=== PATIENT | female | born 1995 | race Two or more races ===

== ENCOUNTER 2021-08-16 14:48 | Emergency (ER) | payer OTHER ==
[~2021-08-16] VITALS: Ht 149.9 cm; Wt 100.0 kg
[2021-08-16 14:56] VITALS: BP 138/92
[2021-08-16] MEDS ORDERED: IBUPROFEN 600 MG TABLET PO ONE (15:00)
== END 2021-08-16 15:50 | disposition home or self-care (01) ==
LOC: EMS 14:52
DX: S00.33XA Contusion of nose, initial encounter (principal); Y04.0XXA Assault by unarmed brawl or fight, initial encounter; Y93.89 Activity, other specified; Y92.89 Other specified places as the place of occurrence of the external cause; Y99.8 Other external cause status
CPT/HCPCS: 99283

== ENCOUNTER 2021-08-26 02:55 | Emergency (ER) | payer OTHER ==
[~2021-08-26] VITALS: Ht 149.9 cm; Wt 99.0 kg
[2021-08-26] MEDS ORDERED: SODIUM CHLORIDE 0.9% 1,000 ML IV ONE (03:15)
[2021-08-26] MEDS ORDERED: ONDANSETRON HCL 4 MG/2 ML VIAL IVP ONE (03:15)
[2021-08-26] MEDS ORDERED: PB/HYOSCY/ATR/SCOP/LIDO/MAALOX 55 ML BOTTLE PO ONE (03:15)
[2021-08-26 04:11] LABS: BASOPHILS % (AUTO) 0.4 % (0.0-2.0); HEMATOCRIT 36.5 % (36-46); HEMOGLOBIN 12.4 g/dL (12.0-16.0); LYMPHOCYTES # (AUTO) 2.7 K/uL (1.0-4.8); LYMPHOCYTES % (AUTO) 26.5 % (22.0-44.0); MEAN CORPUSCULAR HEMOGLOBIN 29.2 pg (26.0-34.0); MEAN CORPUSCULAR HGB CONC 33.8 G/dL (31.0-37.0); MEAN CORPUSCULAR VOLUME 86 fL (80-100); MONOCYTES # (AUTO) 0.7 K/uL (0.1-1.0); MONOCYTES % (AUTO) 7.3 % (2.0-9.0); NEUTROPHILS # (AUTO) 6.4 K/uL (1.8-7.7); NEUTROPHILS % (AUTO) 63.8 % (40.0-70.0); PLATELET COUNT (AUTO) 304 K/uL (150-450); RED BLOOD CELL COUNT(AUTO) 4.23 MIL/uL (4.00-5.20); RED CELL DISTRIBUTION WIDTH 13.6 % (11.5-14.5)
[2021-08-26 04:21] LABS: ANION GAP 6 mmol/L (8-16); CALCIUM, TOTAL 8.7 mg/dL (8.8-10.5); CARBON DIOXIDE 30 mmol/L (22-29); CHLORIDE 101 mmol/L (98-107); CREATININE 0.65 mg/dL (0.60-1.30); GLOMERULAR FILTR. RATE CALC > 60 mL/min (>60); GLUCOSE,RANDOM 94 mg/dL (70-110); POTASSIUM 3.7 mmol/L (3.5-5.1); SODIUM SERUM 137 mmol/L (136-145); UREA NITROGEN, BLOOD 17 mg/dL (7-18)
[2021-08-26 04:38] LABS: ALANINE AMINOTRANSFERASE 28 U/L (12-78); ALBUMIN 3.3 g/dL (3.4-5.0); ALKALINE PHOSPHATASE 79 U/L (46-116); ASPARTATE AMINOTRANSFERASE 15 U/L (15-37); BILIRUBIN,TOTAL 0.2 mg/dL (0.1-1.0); HCG,QUANTITATIVE < 1 mIU/mL (0-6); LIPASE 108 U/L (73-393); TOTAL PROTEIN, SERUM 7.2 g/dL (6.4-8.2)
[2021-08-26 05:13] LABS: APPEARANCE,URINE CLEAR (CLEAR); BILIRUBIN,URINE NEGATIVE (NEGATIVE); GLUCOSE, URINE (UA) NEGATIVE (NEGATIVE); KETONES,URINE NEGATIVE (NEGATIVE); LEUKOCYTE ESTERASE ,URINE NEGATIVE (NEGATIVE); NITRATE,URINE NEGATIVE (NEGATIVE); OCCULT BLOOD,URINE NEGATIVE (NEGATIVE); PROTEIN,URINE NEGATIVE (NEGATIVE); UROBILINOGEN,URINE <=1.0 mg/dL (<=1.0)
[2021-08-26 15:23] VITALS: BP 164/84
== END 2021-08-26 16:41 | disposition left against medical advice (07) ==
LOC: EMS 02:57
DX: K80.20 Calculus of gallbladder without cholecystitis without obstruction (principal)
CPT/HCPCS: 36415; 76705; 80053; 81003; 83690; 84702; 85025; 96361; 96374; 99285; J2405; J7030

== ENCOUNTER 2021-12-17 09:20 | Emergency (ER) | payer OTHER ==
[~2021-12-17] VITALS: Ht 149.9 cm; Wt 104.5 kg
[2021-12-17 10:02] LABS: BASOPHILS % (AUTO) 0.7 % (0.0-2.0); EOSINOPHILS % (AUTO) 1.6 % (1.0-6.0); HEMATOCRIT 33.3 % (36-46); HEMOGLOBIN 11.4 g/dL (12.0-16.0); LYMPHOCYTES # (AUTO) 1.3 K/uL (1.0-4.8); LYMPHOCYTES % (AUTO) 21.7 % (22.0-44.0); MEAN CORPUSCULAR HEMOGLOBIN 29.3 pg (26.0-34.0); MEAN CORPUSCULAR HGB CONC 34.3 G/dL (31.0-37.0); MEAN CORPUSCULAR VOLUME 86 fL (80-100); MONOCYTES # (AUTO) 0.5 K/uL (0.1-1.0); MONOCYTES % (AUTO) 8.1 % (2.0-9.0); NEUTROPHILS % (AUTO) 67.9 % (40.0-70.0); PLATELET COUNT (AUTO) 209 K/uL (150-450); RED BLOOD CELL COUNT(AUTO) 3.89 MIL/uL (4.00-5.20); RED CELL DISTRIBUTION WIDTH 13.4 % (11.5-14.5)
[2021-12-17 10:10] LABS: ANION GAP 2 mmol/L (8-16); CALCIUM, TOTAL 8.7 mg/dL (8.8-10.5); CARBON DIOXIDE 27 mmol/L (22-29); CHLORIDE 103 mmol/L (98-107); CREATININE 0.58 mg/dL (0.60-1.30); GLOMERULAR FILTR. RATE CALC > 60 mL/min (>60); GLUCOSE,RANDOM 96 mg/dL (70-110); POTASSIUM 4.2 mmol/L (3.5-5.1); SODIUM SERUM 132 mmol/L (136-145); UREA NITROGEN, BLOOD 11 mg/dL (7-18)
[2021-12-17 10:15] LABS: ALANINE AMINOTRANSFERASE 18 U/L (12-78); ALKALINE PHOSPHATASE 56 U/L (46-116); ASPARTATE AMINOTRANSFERASE 12 U/L (15-37); BILIRUBIN,TOTAL 0.3 mg/dL (0.1-1.0); LIPASE 47 U/L (73-393); TOTAL PROTEIN, SERUM 6.7 g/dL (6.4-8.2)
[2021-12-17 10:21] LABS: INR 0.9 (0.9-1.1); PROTHROMBIN TIME 9.4 SEC (9.4-11.6)
[2021-12-17 13:22] VITALS: BP 110/75
== END 2021-12-17 14:55 | disposition left against medical advice (07) ==
LOC: EMS 09:20
DX: R10.13 Epigastric pain (principal); Z87.19 Personal history of other diseases of the digestive system
CPT/HCPCS: 80053; 83690; 85025; 85610; 85730; 93005; 99284

== ENCOUNTER 2022-01-26 16:40 | Emergency (ER) | payer OTHER | END 2022-01-26 18:50 | disposition left against medical advice (07) | LOC: EMS 16:54 | DX: Z53.21 Procedure and treatment not carried out due to patient leaving prior to being seen by health care provider (principal) ==

== ENCOUNTER 2025-04-23 17:09 | Emergency (ER) | payer OTHER ==
[~2025-04-23] VITALS: Ht 152.4 cm; Wt 97.7 kg
[2025-04-23 19:07] LABS: PLATELET COUNT (AUTO) 294 K/uL (150-450); RED BLOOD CELL COUNT(AUTO) 4.65 MIL/uL (4.00-5.20); RED CELL DISTRIBUTION WIDTH 13.2 % (11.5-14.5); WHITE BLOOD COUNT (AUTO) 7.9 K/uL (4.5-11.0)
[2025-04-23 19:28] VITALS: BP 152/110; PULSE 113; RESP 16; TEMP 98; O2SAT 99
[2025-04-23] MEDS ORDERED: HYDR-4062 PO (19:37)
[2025-04-23 19:58] LABS: CALCIUM, TOTAL 8.9 mg/dL (8.8-10.5); CREATININE 0.79 mg/dL (0.60-1.30); GLOMERULAR FILTR. RATE CALC > 60 mL/min (>60); GLUCOSE,RANDOM 112 mg/dL (70-110); SODIUM SERUM 136 mmol/L (136-145); UREA NITROGEN, BLOOD 18 mg/dL (7-18)
== END 2025-04-23 22:47 ==
LOC: EMS 17:09
DX: K80.20 Calculus of gallbladder without cholecystitis without obstruction (principal); Z98.890 Other specified postprocedural states
CPT/HCPCS: 99284; 74176; 80048; 84703; 85025; 36415; G0480